=== PATIENT | male | born 1965 | race Two or more races ===

== ENCOUNTER 2022-04-18 15:20 | Emergency (ER) | payer OTHER ==
[~2022-04-18] VITALS: Ht 177.8 cm; Wt 108.9 kg
[2022-04-18] MEDS ORDERED: SIMVASTATIN80 MG PO (15:57)
[2022-04-18] MEDS ORDERED: GLUMETZA500 MG PO (15:57)
[2022-04-18] MEDS ORDERED: RAMIPRIL1.25 MG PO (15:57)
== END 2022-04-18 22:16 | disposition designated cancer center or children's hospital (05) ==
LOC: ER 15:20
DX: S42.352A Displaced comminuted fracture of shaft of humerus, left arm, initial encounter for closed fracture (principal); W01.0XXA Fall on same level from slipping, tripping and stumbling without subsequent striking against object, initial encounter; Y93.89 Activity, other specified; Y92.89 Other specified places as the place of occurrence of the external cause; I10 Essential (primary) hypertension; E11.9 Type 2 diabetes mellitus without complications; Z28.311 Partially vaccinated for COVID-19; Z20.822 Contact with and (suspected) exposure to COVID-19